=== PATIENT | female | born 1980 | race Caucasian/White ===

== ENCOUNTER 2018-10-26 17:25 | Emergency (ER) | payer MEDICAID ==
[~2018-10-26] VITALS: Ht 157.5 cm; Wt 92.1 kg
[2018-10-26 17:30] VITALS: BP 133/98
--- NOTE | 2018-10-26 17:43 | NUR ---
Pt ambulated to room from triage with c-collar on, with steady gait and balance. LINDA.
[2018-10-26] MEDS ORDERED: METHOCARBAMOL 750 MG TABLET ONE (17:52)
[2018-10-26] MEDS ORDERED: METHOCARBAMOL 750 MG TABLET PO ONE (18:00)
--- NOTE | 2018-10-26 18:56 | NUR ---
Provided report to CHARMAINE Cortes. All questions answered. CHARMAINE Cortes to assume care of pt.
== END 2018-10-26 19:49 | disposition home or self-care (01) ==
LOC: ED 19:39
DX: G89.11 Acute pain due to trauma (principal); R07.89 Other chest pain; M54.2 Cervicalgia; M25.512 Pain in left shoulder; F17.200 Nicotine dependence, unspecified, uncomplicated; V49.09XA Driver injured in collision with other motor vehicles in nontraffic accident, initial encounter; Y93.89 Activity, other specified; Y92.89 Other specified places as the place of occurrence of the external cause; Y99.8 Other external cause status
CPT/HCPCS: 71045; 72125; 99284

== ENCOUNTER 2020-06-20 14:58 | Emergency (ER) | payer MEDICAID ==
[~2020-06-20] VITALS: Ht 157.5 cm; Wt 89.0 kg
--- NOTE | 2020-06-20 15:07 | NUR ---
CALLED FOR PT. PT NOT IN LOBBY
[2020-06-20 15:08] VITALS: BP 158/83
--- NOTE | 2020-06-20 18:16 | NUR ---
jewel gauger: attempted to call pt from lobby to room, no answer
--- NOTE | 2020-06-20 18:32 | NUR ---
graphic engineer: pt from lobby to room 5
--- NOTE | 2020-06-20 19:03 | NUR ---
PT RESTING IN [facility] AT THIS TIME, DEMETRA.
== END 2020-06-20 20:48 | disposition home or self-care (01) ==
LOC: ED 15:28
DX: H65.23 Chronic serous otitis media, bilateral (principal); R51.9 Headache, unspecified; R09.81 Nasal congestion
CPT/HCPCS: 70480; 99284